=== PATIENT | male | born 1970 | race Two or more races ===

== ENCOUNTER 2021-05-29 14:16 | Inpatient (IN) | payer OTHER ==
[~2021-05-29] VITALS: Ht 170.2 cm; Wt 138.8 kg
--- NOTE | 2021-05-29 14:16 | NUR ---
PT [id number] C/O L KNEE PAIN, UNABLE TO BEAR WEIGHT S/P FALLING OFF HIS MOTORIZED SKATEBOARD. +HELMET/GEAR. NO HEAD INJURY ENDORSED. PT IS AAOX4, NOT IN RESPIRATORY DISTRESS, HOOKED TO V/S STABLE, KEPT RESTED AND COMFORTABLE. WILL CONTINUE TO MONITOR.
--- NOTE | 2021-05-29 14:43 | NUR ---
SEEN AND EXAMINED BY .
--- NOTE | 2021-05-29 14:43 | NUR ---
Олег hollis in ED - 05/29/21 at 1450 by ETTA PARCEL POST ORDER CLERK AT [facility] FOR XRAY.
--- NOTE | 2021-05-29 14:45 | NUR ---
FORECAST ANALYST AT BEDSIDE FOR XRAY
[2021-05-29] MEDS ORDERED: KETOROLAC TROMETHAMINE INJ 30 MG/ML VIAL IM ONE (15:00)
[2021-05-29] MEDS ORDERED: KETOROLAC TROMETHAMINE INJ 30 MG/ML VIAL ONE (15:03)
[2021-05-29] MEDS ORDERED: HYDROCODONE/APAP 5/325MG TABLET PO ONE (15:30)
--- NOTE | 2021-05-29 16:01 | NUR ---
MOVE SHEET SUBMITTED AND CALLED FOR MS BED.
--- NOTE | 2021-05-29 16:05 | NUR ---
[facility] CALLED PACKAGE DYEING MACHINE OPERATOR PAGED.
--- NOTE | 2021-05-29 16:50 | NUR ---
IV LINE ESTABLISHED BLOOD DRAWN AND SENT TO LAB.
[2021-05-29 16:58] LABS: BASOPHILS % (AUTO) 0.3 % (0.0-2.0); EOSINOPHILS % (AUTO) 0.5 % (0.0-6.0); HEMATOCRIT 44 % (39-51); HEMOGLOBIN 14.9 g/dL (13.5-17.5); LYMPHOCYTES # (AUTO) 0.9 K/uL (0.8-4.8); LYMPHOCYTES % (AUTO) 7.9 % (20.0-44.0); MEAN CORPUSCULAR HGB CONC 34 g/dl (31.0-36.0); MEAN CORPUSCULAR VOLUME 86 fL (80-96); MONOCYTES # (AUTO) 0.5 K/uL (0.1-1.30); MONOCYTES % (AUTO) 4.5 % (2.0-12.0); NEUTROPHILS # (AUTO) 9.6 K/uL (1.8-8.9); NEUTROPHILS % (AUTO) 86.8 % (43.0-81.0); PLATELET COUNT (AUTO) 226 K/uL (150-450); RED BLOOD CELL COUNT(AUTO) 5.18 MIL/uL (4.5-6.0); WHITE BLOOD COUNT (AUTO) 11.1 K/uL (4.3-11.0)
[2021-05-29 17:11] LABS: CALCIUM, SERUM 8.3 mg/dL (8.5-10.1); CREATININE 1.3 mg/dL (0.6-1.3); POTASSIUM 3.9 mmol/L (3.5-5.1)
[2021-05-29] MEDS ORDERED: ACETAMINOPHEN 325 MG TABLET PO PRN (17:30)
[2021-05-29] MEDS ORDERED: MAG HYDROX/AL HYDROX/SIMETH 30 ML UDC PO PRN (17:30)
[2021-05-29] MEDS ORDERED: LABETALOL 20 MG/4 ML VIAL IV PRN (17:30)
[2021-05-29] MEDS ORDERED: MAGNESIUM HYDROXIDE 30 ML UDC PO PRN (17:30)
[2021-05-29] MEDS ORDERED: ONDANSETRON HCL/PF 4 MG/2 ML VIAL IVP PRN (17:30)
[2021-05-29] MEDS ORDERED: DEXTROSE 50%-WATER 50 ML DISP.SYRIN IV PRN (17:30)
[2021-05-29] MEDS: BLOOD SUGAR DIAGNOSTIC 1 EACH STRIP VI SCH ×2 (17:52→21:58)
--- NOTE | 2021-05-29 17:55 | NUR ---
AT BEDSIDE FOR EVAL.
[2021-05-29] MEDS ORDERED: ENOXAPARIN SODIUM 40 MG/0.4 ML DISP.SYRIN SQ ONE (18:14)
--- NOTE | 2021-05-29 18:16 | NUR ---
DR. RIVERA TO ADMIT PATIENT. . СВЕТЛАНАO POST MIDNIGHT PER MD FOR SURGERY IN AM.
[2021-05-29] MEDS: ENOXAPARIN SODIUM 40 MG/0.4 ML DISP.SYRIN SQ SCH (18:18)
--- NOTE | 2021-05-29 18:33 | NUR ---
REPORT GIVEN TO OSCAR BURNETTE FOR JOANNA.
--- NOTE | 2021-05-29 18:35 | NUR ---
RN NOTES PATIENT TRANSFERRED TO UNIT AT ROOM 315-2 VIA [facility], ACCOMPANIED BY 2 ER NURSES.
--- NOTE | 2021-05-29 19:04 | NUR ---
RN NOTES RECEIVED ORDER FOR CLEOPATRA FROM DR. RIVERA PART OF PAIN MGT FOR PATIENT, NOTED AND CARRIED OUT.
[2021-05-29] MEDS ORDERED: HYDROCODONE/APAP 10/325MG TABLET PO PRN (19:30)
--- NOTE | 2021-05-29 19:30 | NUR ---
MS TRUCK BENCH MECHANIC NOTE RECEIVED PT AWAKE IN BED. A/O X4. PT ADMITTED TO MS UNIT FROM ER WITH ADMITTING DX OF R TIBIAL FX. PT STABLE ON ROOM AIR. NO SOB OR S/S OF RESPIRATORY DISTRESS. PT REPORTS PAIN OF R KNEE. PAIN MEDICATION OFFERED. SKIN IS INTACT. IV ACCESS LAC 18 GAUGE RUNNING NS @ 75 ML/HR. PT IS ORIENTED TO STAFF, ROOM, AND UNIT. SAFETY PRECAUTIONS IN PLACE. BED IN LOWEST LOCKED POSITION, HOB ELEVATED, SIDE RAILS UP X2, AND CALL LIGHT AND TABLE WITHIN REACH. WILL CONTINUE WITH PLAN OF CARE.
[2021-05-29 20:00] VITALS: BP 165/76
[2021-05-29] MEDS: MORPHINE SULFATE INJ 2 MG/ML DISP.SYRIN IV PRN (20:34)
--- NOTE | 2021-05-29 20:34 | NUR ---
RN NOTE PT COMPLAINED OF PAIN 8/ OF R KNEE. ADMINISTERED MORPHINE 2 MG ORDERED FOR SEVERE PAIN. WILL CONTINUE WITH PLAN OF CARE.
[2021-05-29] MEDS: *INSULIN REGULAR(HUMULIN R)HUM 100 UNIT/ML VIAL SQ PRN (22:05)
[2021-05-30] MEDS: MORPHINE SULFATE INJ 2 MG/ML DISP.SYRIN IV PRN ×3 (00:49→23:46)
--- NOTE | 2021-05-30 00:49 | NUR ---
RN NOTE PT COMPLAINED OF PAIN 9/10 OF R KNEE. ADMINISTERED MORPHINE 2 MG ORDERED FOR SEVERE PAIN. WILL CONTINUE WITH PLAN OF CARE.
--- NOTE | 2021-05-30 06:12 | NUR ---
RN NOTE PT COMPLAINED OF PAIN 9/10 OF R KNEE. ADMINISTERED MORPHINE 2 MG ORDERED FOR SEVERE PAIN. WILL CONTINUE WITH PLAN OF CARE.
--- NOTE | 2021-05-30 06:31 | NUR ---
MS RN CLOSING NOTE PT AWAKE IN BED. A/O X4. PT STABLE ON ROOM AIR. NO SOB OR S/S OF RESPIRATORY DISTRESS. IV ACCESS LAC 18 GAUGE RUNNING NS @ 75 ML/HR. ALL NEEDS MET AT THIS TIME. SAFETY PRECAUTIONS IN PLACE AT ALL TIMES. BED IN LOWEST LOCKED POSITION, HOB ELEVATED, SIDE RAILS UP X2, AND CALL LIGHT AND TABLE WITHIN REACH. WILL ENDORSE TO ONCOMING SHIFT FOR JOANNA.
[2021-05-30] MEDS: BLOOD SUGAR DIAGNOSTIC 1 EACH STRIP VI SCH ×5 (06:40→22:02)
[2021-05-30] MEDS: INSULIN REGULAR, HUMAN 100 UNIT/ML 3 ML VIAL SQ PRN ×2 (06:41→17:25)
[2021-05-30] MEDS: IV NS 0.9% 1,000 ML IV PRN (07:18)
--- NOTE | 2021-05-30 07:37 | NUR ---
RN OPENING NOTES Patient seen comfortably lying in bed, no apparent distress noted, respirations even and unlabored, no SOB, denies any pain or discomfort at this time, no grimacing. Call light left within reach, safety precautions in place, brakes locked, side rails up X 2, will monitor closely for any changes.
[2021-05-30 07:41] LABS: BASOPHILS % (AUTO) 0.3 % (0.0-2.0); EOSINOPHILS % (AUTO) 1.4 % (0.0-6.0); HEMATOCRIT 41 % (39-51); HEMOGLOBIN 13.9 g/dL (13.5-17.5); LYMPHOCYTES # (AUTO) 1.4 K/uL (0.8-4.8); LYMPHOCYTES % (AUTO) 16.7 % (20.0-44.0); MEAN CORPUSCULAR HGB CONC 34 g/dl (31.0-36.0); MEAN CORPUSCULAR VOLUME 86 fL (80-96); MONOCYTES # (AUTO) 0.7 K/uL (0.1-1.30); MONOCYTES % (AUTO) 8.4 % (2.0-12.0); NEUTROPHILS # (AUTO) 6.2 K/uL (1.8-8.9); NEUTROPHILS % (AUTO) 73.2 % (43.0-81.0); PLATELET COUNT (AUTO) 215 K/uL (150-450); RED BLOOD CELL COUNT(AUTO) 4.73 MIL/uL (4.5-6.0); WHITE BLOOD COUNT (AUTO) 8.4 K/uL (4.3-11.0)
[2021-05-30 07:55] LABS: ALBUMIN 3.3 g/dL (3.4-5.0); BILIRUBIN,TOTAL 0.6 mg/dL (0.2-1.0); CALCIUM, SERUM 8.2 mg/dL (8.5-10.1); CREATININE 0.9 mg/dL (0.6-1.3); MAGNESIUM 2.2 mg/dL (1.8-2.4); PHOSPHORUS 3.3 mg/dL (2.5-4.9); POTASSIUM 3.7 mmol/L (3.5-5.1)
[2021-05-30 08:10] VITALS: BP 175/84
[2021-05-30] MEDS ORDERED: ANESTHESIA TRAY IN PYXIS 1 EA TRAY MC ONE (08:25)
[2021-05-30] MEDS ORDERED: BUPIVACAINE 0.5 % PF 150 MG/30 ML VIAL ONE (08:26)
[2021-05-30 09:30] VITALS: BP 154/87
--- NOTE | 2021-05-30 09:32 | NUR ---
Patient left for surgery around 09:30am, remained NPO post-midnight, denies pain or discomfort, no apparent distress notes, no s/s of hypo/hyperglycemia, no change in level of consciousness, no tremors, denies any pain or discomfort, consents and checklist present in patients chart, patient has no jewelry present.
[2021-05-30] MEDS ORDERED: MIDAZOLAM HCL 2 MG/2ML VIAL ONE (09:51)
[2021-05-30] MEDS ORDERED: HYDROMORPHONE INJ 2 MG/ML DISP.SYRIN ONE (09:51)
[2021-05-30] MEDS ORDERED: FENTANYL PF 250MCG/5ML AMPUL ONE (09:51)
[2021-05-30] MEDS ORDERED: FAMOTIDINE/PF INJ 20 MG/2 ML VIAL IV ONE (09:52)
[2021-05-30] MEDS ORDERED: ROCURONIUM BROMIDE 50 MG/5 ML ONE (09:52)
[2021-05-30] MEDS ORDERED: POLYMYXIN B SULFATE 500,000 UNITS ONE (10:44)
[2021-05-30] MEDS ORDERED: ACETAMINOPHEN 325 MG TABLET PO PRN (12:59)
[2021-05-30] MEDS ORDERED: HYDROCODONE/APAP 10/325MG TABLET PO PRN (13:00)
[2021-05-30] MEDS ORDERED: SENNOSIDES 8.6 MG TABLET PO PRN (13:30)
[2021-05-30] MEDS ORDERED: DOCUSATE SODIUM 250 MG CAPSULE PO PRN (13:30)
[2021-05-30] MEDS ORDERED: ONDANSETRON HCL/PF 4 MG/2 ML VIAL IVP PRN (13:30)
[2021-05-30] MEDS ORDERED: BISACODYL SUPP (10 MG) 10 MG/SUPP.RECT SUPP.RECT RC PRN (13:30)
--- NOTE | 2021-05-30 14:01 | NUR ---
Patient came back from surgery around 1401pm, stable condition, no apparent distress noted, denies any pain or discomfort at this time, no shortness of breath, afebrile, no respiratory distress. Patient came back with new orders noted and carried out by PACU nurse. Call light left within reach, will monitor closely for any changes.
[2021-05-30 16:01] VITALS: BP 150/98
[2021-05-30] MEDS: AMLODIPINE BESYLATE 5 MG TABLET PO SCH (16:58)
[2021-05-30] MEDS: ENOXAPARIN SODIUM 40 MG/0.4 ML DISP.SYRIN SQ SCH (17:26)
[2021-05-30] MEDS: ANCEF 1 GM/50 ML D5W IV SCH ×2 (18:10)
[2021-05-30] MEDS: HYDROCODONE/APAP 5/325MG TABLET PO PRN (18:42)
--- NOTE | 2021-05-30 18:54 | NUR ---
RN CLOSING NOTES Patient lying in bed, no shortness of breath, respirations even and unlabored, no apparent distress noted, no dizziness, no palpitations, no chest pain, remained afebrile. All due medications given per MD order, tolerating well. Patient has an order for IV fluids (0.9NS at 75ml/hr) IV site on his left antecubital, intact and IV fluids infusing well, no swelling, no redness, no c/o pain or discomfort at site. No s/s of hypo or hyperglycemia, no tremors, no change in level of consciousness, insulin given per sliding scale as needed per MD order and tolerated well. Patient S/P right tibia ORIF today with Dr. Sanchez, surgical site with no visible s/s of bleeding, no unusual odor, no drainage noted, site wrapped in jie bandage and knee immobilizer in place, no s/s of circulation impairment noted at this time, skin warm to touch, no pallor or cyanosis noted, pulse present during shift, no swelling noted at this time. Right lower extremity elevated with pillow, and ice packs applied. Pain medication given per MD order as needed when non pharmacological measures ineffective, noted with help. Aspiration precautions observed at all times, kept head of bed elevated, all needs anticipated, kept clean and dry, patient repositioned frequently, safety precautions in place, frequent visual checks rendered, side rails up X 2, brakes locked, call light left within reach, will endorse to next shift for continuity of care.
--- NOTE | 2021-05-30 19:30 | NUR ---
RN OPENING NOTE PATIENT IN BED, AWAKE. PATIENT IS A/O X 4, ABLE TO MAKE NEEDS KNOWN. PATIENT DOES NOT REPORT OF ANY PAIN AT THIS TIME. TOLERATING ROOM AIR, NOT IN ANY APPARENT DISTRESS. PATIENT IS S/P R TIBIA ORIF. KNEE IMMOBILIZER ON. LACE 18 G HAS RESISTANCE WHEN BEING FLUSHED. WILL INSERT NEW IV ACCESS. SAFETY MEASURES IN PLACE: BED LOCKED AND IN LOWEST POSITION, CALL LIGHT WITHIN REACH, SIDE RAILS UP. WILL MONITOR PATIENT CLOSELY
[2021-05-30 20:00] VITALS: BP 154/75
--- NOTE | 2021-05-30 20:00 | NUR ---
RN NOTE PATIENT COMPLAINING ABOUT THE KNEE IMMOBILIZER, REQUESTING TO HAVE IT REMOVED. EDUCATED PATIENT ON RISK AND BENEFITS. PATIENT REFUSING IT AT THIS TIME HE STATES THAT IT IS VERY UNCOMFORTABLE AND IT MAKE'S HIS FOOT NUMB. EDUCATED PATIENT ON EXERCISES THAT INCREASE CIRCULATION TO PREVENT NUMBNESS AND FOR PATIENT TO BE CONSCIOUS ABOUT HIS RLE/ NOT TO MOVE OR BEND IT. NEURO VASCULAR CHECK DONE. WILL TRY AGAIN AT A LATER TIME
[2021-05-30] MEDS: *INSULIN REGULAR(HUMULIN R)HUM 100 UNIT/ML VIAL SQ PRN (22:06)
--- NOTE | 2021-05-30 22:10 | NUR ---
RN NOTE BS 260 MG/DL, 6 UNITS OF REGULAR INSULIN GIVEN FOR COVERAGE. WILL MONITOR PATIENT FOR HYPO/HYPERGLYCEMIA.
--- NOTE | 2021-05-30 23:20 | NUR ---
RN NOTE LFA 20G INSERTED- PATENT AND INTACT- FLUSHING WELL.
--- NOTE | 2021-05-30 23:50 | NUR ---
RN NOTE MORPHINE GIVEN FOR PAIN ON RLE
[2021-05-31] MEDS: ANCEF 1 GM/50 ML D5W IV SCH ×2 (02:42)
[2021-05-31] MEDS: HYDROCODONE/APAP 5/325MG TABLET PO PRN ×3 (05:30→21:48)
--- NOTE | 2021-05-31 05:31 | NUR ---
RN NOTE NORCO 2 TABS GIVEN FOR RLE PAIN
[2021-05-31] MEDS: IV NS 0.9% 1,000 ML IV PRN ×2 (06:05→18:37)
[2021-05-31] MEDS: INSULIN REGULAR, HUMAN 100 UNIT/ML 3 ML VIAL SQ PRN (06:07)
--- NOTE | 2021-05-31 06:28 | NUR ---
RN CLOSING NOTE PATIENT IN BED, EYES CLOSED. PATIENT IS A/O X 4, ABLE TO MAKE NEEDS KNOWN. PAIN MANAGED WITH MORPHINE AND NORCO 5-325. TOLERATING ROOM AIR, NO SOB NOTED, NOT IN ANY APPARENT DISTRESS. PATIENT IS S/P R TIBIA ORIF. PATIENT STILL DOES NOT WANT KNEE IMMOBILIZER ON. LFA 20 G PATENT AND INTACT, NS @ 75 ML/HR ON GOING. SAFETY MEASURES IN PLACE: BED LOCKED AND IN LOWEST POSITION, CALL LIGHT WITHIN REACH, SIDE RAILS UP. ALL NEEDS MET AND ATTENDED. ALL ORDERS CARRIED OUT. WILL ENDORSE TO DAY SHIFT NURSE FOR JOANNA.
[2021-05-31] MEDS: BLOOD SUGAR DIAGNOSTIC 1 EACH STRIP VI SCH ×4 (06:36→21:48)
--- NOTE | 2021-05-31 07:46 | NUR ---
MS RN OPENING NOTE Patient in bed, awake. A/O x 4, able to make needs known. On room air, breathing evenly and unlabored. No SOB or s/s of distress noted. IV access on LFA #20G infusing NS at 75 ml/hr. Swan catheter in place draining to a yellow colored urine. Bandage on Right leg is c/d/i. Safety precautions in place: bed in low, locked position; siderails up x 2; call light within reach. Will continue to monitor.
[2021-05-31] MEDS: AMLODIPINE BESYLATE 5 MG TABLET PO SCH (08:43)
[2021-05-31 09:17] VITALS: BP 148/73
[2021-05-31] MEDS: *INSULIN REGULAR(HUMULIN R)HUM 100 UNIT/ML VIAL SQ PRN ×3 (11:20→21:48)
[2021-05-31] MEDS ORDERED: LACTULOSE 10 G/15 ML UDC (PYXIS) PO PRN (13:30)
[2021-05-31] MEDS ORDERED: MORPHINE SULFATE INJ 2 MG/ML DISP.SYRIN IV PRN (15:30)
[2021-05-31] MEDS: METFORMIN 500 MG TABLET PO SCH (16:02)
[2021-05-31] MEDS: DOCUSATE SODIUM 100 MG CAPSULE PO SCH (16:02)
[2021-05-31 16:31] VITALS: BP 152/78
[2021-05-31] MEDS: ENOXAPARIN SODIUM 40 MG/0.4 ML DISP.SYRIN SQ SCH (17:44)
--- NOTE | 2021-05-31 18:56 | NUR ---
MS RN CLOSING NOTE Patient in bed, awake. A/O x 4, able to make needs known. Stable on room air, breathing evenly and unlabored. No SOB or s/s of distress noted. IV access on LFA #20G infusing NS at 75 ml/hr. Swan catheter in place draining to a yellow colored urine with an output of 1800cc. Bandage on Right leg is c/d/i. RLE kept elevated. All needs attended to. Due meds given. Walker given to patient to take home, kept at bedside. Safety precautions maintained: bed in low, locked position; siderails up x 2; call light within reach. Will endorse to business banking sales assistant nurse for JOANNA.
--- NOTE | 2021-05-31 19:30 | NUR ---
RN OPENING NOTE PATIENT IN BED, AWAKE. PATIENT IS A/O X 4, ABLE TO MAKE NEEDS KNOWN. PATIENT DOES NOT REPORT OF ANY PAIN AT THIS TIME. TOLERATING ROOM AIR, NOT IN ANY APPARENT DISTRESS. PATIENT IS S/P R TIBIA ORIF. LFA 22 G PATENT AND INTACT, RUNNING NS AT 75 ML/HR. PATIENT DOES NOT WANT KNEE IMMOBILIZER ON. SAFETY MEASURES IN PLACE: BED LOCKED AND IN LOWEST POSITION, CALL LIGHT WITHIN REACH, SIDE RAILS UP. WILL MONITOR PATIENT CLOSELY
[2021-05-31 20:00] VITALS: BP 152/77
--- NOTE | 2021-05-31 21:50 | NUR ---
RN NOTE PATIENT GIVEN NORCO 2 TAB D/T RLE PAIN. INSULIN 4 UNITS GIVEN FOR COVERAGE 223 MG/DL. WILL MONITOR FOR HYPO/HYPERGLYCEMIA.
[2021-06-01] MEDS: HYDROCODONE/APAP 5/325MG TABLET PO PRN ×3 (05:48→17:07)
[2021-06-01] MEDS: INSULIN REGULAR, HUMAN 100 UNIT/ML 3 ML VIAL SQ PRN ×3 (06:07→17:41)
[2021-06-01] MEDS: IV NS 0.9% 1,000 ML IV PRN ×2 (06:12→18:55)
[2021-06-01] MEDS: BLOOD SUGAR DIAGNOSTIC 1 EACH STRIP VI SCH ×4 (06:32→22:16)
[2021-06-01 06:33] LABS: BASOPHILS % (AUTO) 0.3 % (0.0-2.0); EOSINOPHILS % (AUTO) 6.5 % (0.0-6.0); HEMATOCRIT 41 % (39-51); HEMOGLOBIN 13.9 g/dL (13.5-17.5); LYMPHOCYTES % (AUTO) 13.9 % (20.0-44.0); MEAN CORPUSCULAR HGB CONC 34 g/dl (31.0-36.0); MEAN CORPUSCULAR VOLUME 86 fL (80-96); MONOCYTES # (AUTO) 0.7 K/uL (0.1-1.30); MONOCYTES % (AUTO) 9.8 % (2.0-12.0); NEUTROPHILS # (AUTO) 5.2 K/uL (1.8-8.9); NEUTROPHILS % (AUTO) 69.5 % (43.0-81.0); PLATELET COUNT (AUTO) 193 K/uL (150-450); RED BLOOD CELL COUNT(AUTO) 4.75 MIL/uL (4.5-6.0); WHITE BLOOD COUNT (AUTO) 7.4 K/uL (4.3-11.0)
--- NOTE | 2021-06-01 06:52 | NUR ---
RN CLOSING NOTE PATIENT IN BED, EYES CLOSED. PATIENT IS A/O X 4, ABLE TO MAKE NEEDS KNOWN. PAIN MANAGED WITH NORCO 5-325. TOLERATING ROOM AIR, NO SOB NOTED, NOT IN ANY APPARENT DISTRESS. PATIENT IS S/P R TIBIA ORIF. PATIENT STILL DOES NOT WANT KNEE IMMOBILIZER ON. LFA 20 G PATENT AND INTACT, NS @ 75 ML/HR ON GOING. SAFETY MEASURES IN PLACE: BED LOCKED AND IN LOWEST POSITION, CALL LIGHT WITHIN REACH, SIDE RAILS UP. ALL NEEDS MET AND ATTENDED. ALL ORDERS CARRIED OUT. WILL ENDORSE TO DAY SHIFT NURSE FOR JOANNA.
--- NOTE | 2021-06-01 07:22 | NUR ---
RN OPENING NOTE- PATIENT IN BED, AWAKE. PATIENT IS A/O X 4, ABLE TO MAKE NEEDS KNOWN. PATIENT COMFORTABLE AT PRESENT. TOLERATING ROOM AIR, NOT IN ANY APPARENT DISTRESS. PATIENT IS S/P R TIBIA ORIF. LFA 22 G PATENT AND INTACT, RUNNING NS AT 75 ML/HR. SAFETY MEASURES IN PLACE: BED LOCKED AND IN LOWEST POSITION, CALL LIGHT WITHIN REACH, SIDE RAILS UP. WILL MONITOR / ASSIST
[2021-06-01 08:00] VITALS: BP 143/77
[2021-06-01] MEDS: METFORMIN 500 MG TABLET PO SCH ×2 (09:11→17:07)
[2021-06-01] MEDS: DOCUSATE SODIUM 100 MG CAPSULE PO SCH ×2 (09:11→17:07)
[2021-06-01] MEDS: AMLODIPINE BESYLATE 5 MG TABLET PO SCH (09:12)
[2021-06-01] MEDS ORDERED: ACET325T53 PO (11:19)
[2021-06-01] MEDS ORDERED: Blood Sugar Diagnostic VI (11:19)
[2021-06-01] MEDS ORDERED: INSU100V7 SQ (11:19)
[2021-06-01] MEDS ORDERED: DOCU100C36 PO (11:19)
[2021-06-01] MEDS ORDERED: METF-440 PO (11:19)
[2021-06-01] MEDS ORDERED: AMLO-212 PO (11:19)
[2021-06-01] MEDS ORDERED: SENN-175 PO (11:19)
[2021-06-01] MEDS ORDERED: RIVA10TA PO (11:19)
[2021-06-01] MEDS ORDERED: HYDR-3980 PO (11:19)
[2021-06-01] MEDS ORDERED: DOCU250C14 PO (11:19)
--- NOTE | 2021-06-01 11:28 | NUR ---
SS Consult: SS consult for disability. Pt. Is a 51-year-old male who demonstrates adequate insight to the reason for hospitalization. Pt. was oriented x4, alert, and cooperative. During interview, pt. was capable of following directions, made appropriate eye-contact, and appeared well-groomed. Pt.s speech was at a normal rate and pt.s mood was elevated. Pt. reported no hx of mental health, substance abuse, suicidal ideation, or homicidal ideation. Pt. denies auditory hallucinations, visual hallucinations, paranoia, or delusions. Per pt., he fell off his motorized skateboard and hurt his right knee. Pt. stated that he would have to take time off work and requested information regarding disability. SW provided pt. with disability information. SW explored pt.s living situation. Per pt., he lives with his , Amy [[address] [place] [address], ]. Per pt., his is very supportive. Plan: SW provided available resources and pt. accepted. MATEO provided pt. with disability information upon request. Once discharge, per pt., he will return to home [[address] [place] [address]]. Resources Provided: You can apply: Online; or By calling our [employer] toll-free service at (TTY ) or visiting your local Social Security office. An appointment is not required, but if you call ahead and schedule one, it may reduce the time you spend waiting to apply. You can help by being ready to: Provide any needed documents; and Answer the questions listed below. Documents you may need to provide We may ask you to provide documents to show that you are eligible, such as: certificate or other proof of ; Proof of [place] citizenship or lawful alien status if you were not born in the [place]; U.S. discharge paper(s) if you had service before 1967; W-2 forms(s) and/or self-employment tax returns for last year; An Adult Disability Report that collects more details about your illnesses, injuries or conditions, and your work history; Medical evidence already in your possession. This includes medical records, doctors' reports, and recent test results; and Award letters, pay stubs, settlement agreements or other proof of any temporary or permanent workers' compensation-type benefits you received [more info]. Important We accept photocopies of W-2 forms, self-employment tax returns or medical documents, but we must see the original of most other documents, such as your certificate. (We will return them to you.) Do not delay applying for benefits because you do not have all the documents. We will help you get them. What we will ask you Your name, gender and Social Security number; Your name at (if different); Your date of and place of (State or foreign country); Whether a public or taoism record was made of your before age 5; Your citizenship status; Whether you or anyone else has ever filed for Social Security benefits, Medicare or Supplemental Security Income on your behalf (if so, we will also ask for information on whose Social Security record you applied); Whether you have used any other Social Security number; Whether you were ever in the active service before 1967 and, if so, the dates of service and whether you have ever been eligible to receive a monthly benefit from a or Federal civilian agency; Whether you or your spouse have ever worked for the [employer] industry; Whether you have earned Social Security credits under another country's Social Security system; Whether you qualified for or expect to receive a pension or annuity based on your own employment with the Federal government of the [facility] or one of its States or local subdivisions; Whether you are currently and, if so, your spouse's name, date of (or age) and Social Security number (if known); The names, dates of (or age) and Social Security numbers (if known) of any former spouses; The dates and places of each of your marriages and, for marriages that have ended, how and when they ended; The names of any unmarried children under age 18, age 18-19 and in elementary or secondary school, or disabled before age 22; Whether you have or had a child under age 3 living with you during a calendar year when you had no earnings; Whether you have a parent who was dependent on you for 1/2 of his or her support at the time you became disabled; Whether you had earnings in all years since 1977; The name(s) of your employer(s) or information about your self-employment and the amount of your earnings for this year and last year; Whether you received or expect to receive any money from an employer since the date you became unable to work; Whether you have any unsatisfied felony or arrest warrants for escape from custody, flight to avoid prosecution or confinement, or flight-escape; The date you became unable to work because of illnesses, injuries or conditions and if you are still unable to work; and Information about any workers' compensation, black lung, and/or similar benefits you filed, or intend to file for. These benefits can: oBe temporary or permanent in nature; oInclude annuities and lump sum payments that you received in the past; and oBe paid by your employer or your employer's insurance carrier, private agencies, or Federal, State or other government or public agencies. Some examples include: oWorkers' Compensation oBlack Lung Benefits [place] Workers' Compensation oCivil Service Assisted oFederal Employees' Assisted oFregency hospital companyal Employees' Compensation oState Disability Insurance benefits oMilitary alf pensions based on disability
[2021-06-01 16:00] VITALS: BP 154/77
[2021-06-01] MEDS: ENOXAPARIN SODIUM 40 MG/0.4 ML DISP.SYRIN SQ SCH (17:08)
--- NOTE | 2021-06-01 19:17 | NUR ---
RN CLOSING NOTE- PATIENT IN BED, AWAKE. PATIENT IS A/O X 4, ABLE TO MAKE NEEDS KNOWN. PATIENT COMFORTABLE AT PRESENT. NORCO RELIEVING PAIN. TOLERATING ROOM AIR, NOT IN ANY APPARENT DISTRESS. PATIENT IS S/P R TIBIA ORIF. RLE DRESSING DRY INTACT, LFA 22 G PATENT AND INTACT, RUNNING NS AT 75 ML/HR. PT TO [facility]OMORROW TO [facility] SAFETY MEASURES IN PLACE: BED LOCKED AND IN LOWEST POSITION, CALL LIGHT WITHIN REACH, SIDE RAILS UP. WILL MONITOR / ASSIST
--- NOTE | 2021-06-01 19:30 | NUR ---
RN NOTES RECEIVED CARE OF PATIENT FROM AM NURSE WHILE PATIENT IN BED, A/O X4, ABLE TO VERBALIZE NEEDS. PATIENT EXPRESSES DISCOMFORT, REPOSITIONED. PATIENT ON ROOM AIR, BREATHING EVEN AND UNLABORED, 02 SAT IS 100%. PATIENT IS S/P R TIBIA ORIF. RLE DRESSING DRY INTACT, LFA 22 G PATENT AND INTACT, RUNNING NS AT 75 ML/HR. NO SIGNIFICANT FINDINGS UPON INITIAL NURSING ASSESSMENTS. APPROPRIATE SAFETY MEASURES IN PLACE: BED LOCKED AND IN LOWEST POSITION, CALL LIGHT WITHIN REACH, SIDE RAILS UP. WILL MONITOR AND ASSIST PATIENT THROUGHOUT SHIFT.
[2021-06-01 20:00] VITALS: BP 164/73
[2021-06-01] MEDS: *INSULIN REGULAR(HUMULIN R)HUM 100 UNIT/ML VIAL SQ PRN (22:15)
[2021-06-02] MEDS: HYDROCODONE/APAP 5/325MG TABLET PO PRN ×2 (04:01→10:40)
--- NOTE | 2021-06-02 06:45 | NUR ---
RN NOTES WILL ENDORSE CARE OF PATIENT WHILE PATIENT IN BED, A/O X4, ABLE TO VERBALIZE NEEDS. ALL NEEDS ATTENDED TO THROUGHOUT SHIFT. PATIENT IS STABLE WITH NO SIGNS OF DISTRESS OR DISCOMFORT AT THIS TIME. NO SIGNIFICANT FINDINGS UPON ALL NURSING ASSESSMENTS. WILL ENDORSE TO AM NURSE FOR JOANNA.
[2021-06-02] MEDS: IV NS 0.9% 1,000 ML IV PRN (07:00)
--- NOTE | 2021-06-02 07:30 | NUR ---
MS RN OPENING NOTES RECEIVED PATIENT ON BED AWAKE AND A/O X4. ON ROOM AIR TOLERATING WELL. NO SOB NOTED. NOT IN DISTRESS. WITH NO COMPLAINTS OF PAIN OR DISCOMFORT AT THIS TIME. WITH IV ACCESS AT LEFT FOREARM G20 WITH IVF NS AT 75ML/HR INFUSING WELL. IV SITE IS INTACT AND PATENT. SAFETY MEASURES IN PLACED. CALL LIGHT WITHIN REACH. BED ON LOWEST LOCKED POSITION, SIDE RAILS UP X2. WILL CONTINUE TO MONITOR.
[2021-06-02 08:00] VITALS: BP 164/78
[2021-06-02] MEDS: BLOOD SUGAR DIAGNOSTIC 1 EACH STRIP VI SCH ×2 (08:11→11:59)
[2021-06-02] MEDS: METFORMIN 500 MG TABLET PO SCH (08:29)
[2021-06-02] MEDS: DOCUSATE SODIUM 100 MG CAPSULE PO SCH (08:30)
[2021-06-02] MEDS: AMLODIPINE BESYLATE 5 MG TABLET PO SCH (08:31)
[2021-06-02] MEDS: *INSULIN REGULAR(HUMULIN R)HUM 100 UNIT/ML VIAL SQ PRN ×2 (08:40→11:59)
[2021-06-02] MEDS ORDERED: CLONIDINE HCL 0.1 MG TABLET PO PRN (14:00)
--- NOTE | 2021-06-02 14:30 | NUR ---
RN NOTE AMBULANCE PERSONNELS ARE HERE TO PICK-UP THE PATIENT BUT BP WAS 168/81. CALLED THE [facility] AND SPOKE WITH ABIEL AND SHE ASKED FOR BP MED PRN. REPORTED TO SY WELLS NP AND ORDERED CLONIDINE 0.1MG PO Q6H PRN FOR BP >160.
[2021-06-02 14:50] VITALS: BP 168/85
--- NOTE | 2021-06-02 14:50 | NUR ---
RN NOTE CLONIDINE 0.1MG PO PRN FOR BP >160 GIVEN. WILL RECHECK PT'S BP AFTER 15MIN.
--- NOTE | 2021-06-02 15:05 | NUR ---
RN NOTE RECHECK BP: 154/79MMHG
--- NOTE | 2021-06-02 16:00 | NUR ---
MS INTEGRATED PEST MANAGEMENT TECHNICIAN NOTES PATIENT WAS SEEN BY ORTHOPEDIC BRACE MAKER SY WELLS AND ORDERED PATIENT FOR DISCHARGE TO ACUTE REHAB. DISCHARGE INSTRUCTION AND EDUCATION PROVIDED TO PATIENT AND EXPLAINED MEDICATIONS AND PRESCRIPTIONS. PATIENT VERBALIZED UNDERSTANDING. DISCHARGE FORM AND BELONGINGS LIST FORM SIGNED BY PATIENT. ALL BELONGINGS ACCOUNTED FOR. CALLED [facility] AND GIVEN REPORT TO OSCAR BEEBE. NAME WRIST BAND AND IV LINE REMOVED. PATIENT WAS PICKED UP BY AMBULANCE PERSONNELS IN STABLE CONDITION. MD AND CHARGE NURSE ARE AWARE OF THE DISCHARGE.
== END 2021-06-02 16:00 | DRG 488 ==
LOC: ER 14:19 → TRANSITION 17:47 → MED 18:28
PROVIDERS: ADMIT Internal Medicine; ATTEND Nurse Practitioner Acute Care
PROC: 0QSG04Z Reposition Right Tibia with Internal Fixation Device, Open Approach (ICD-10-PCS; principal; 2021-05-30)
PROC: 0SQC0ZZ Repair Right Knee Joint, Open Approach (ICD-10-PCS; 2021-05-30)
DX: S82.141A Displaced bicondylar fracture of right tibia, initial encounter for closed fracture (principal); Z68.42 Body mass index [BMI] 45.0-49.9, adult; E44.0 Moderate protein-calorie malnutrition; S83.281A Other tear of lateral meniscus, current injury, right knee, initial encounter; V00.131A Fall from skateboard, initial encounter; Y93.51 Activity, roller skating (inline) and skateboarding; Y92.89 Other specified places as the place of occurrence of the external cause; E11.9 Type 2 diabetes mellitus without complications; I10 Essential (primary) hypertension; E83.51 Hypocalcemia; E66.9 Obesity, unspecified; Z71.3 Dietary counseling and surveillance; Z20.822 Contact with and (suspected) exposure to COVID-19; M17.0 Bilateral primary osteoarthritis of knee
CPT/HCPCS: 36415; 71045-TC; 73562; 73564-TC; 73590-TC; 73700-TC; 80048-TC; 80053-TC; 82962-TC; 83605-TC; 83735-TC; 84100-TC; 85025-TC; 85730-TC; 86850-TC; 87081-TC; 97116-TC; 97530-TC; A4217; A6253; C1713; C9803; G0378; J0690; J1170; J1650; J1815; J1885; J2250; J2270; J2405; J2704; J2765; J3010; J3490; J7030; J7060; L1830